=== PATIENT | female | born 1980 | race Caucasian/White ===

== ENCOUNTER 2017-04-05 19:54 | Inpatient (IN) | payer MEDICAID ==
[~2017-04-05] VITALS: Ht 165.1 cm; Wt 71.4 kg
[2017-04-05 22:38] LABS: Basophils # (auto) 0.1 uL; Basophils % (auto) 0.5 % (0.0-2.0); Eosinophils # (auto) 0 uL; Eosinophils % (auto) 0.1 % (0.0-7.0); Hemoglobin 10.1 g/dL (12.2-16.2); Mean Platelet Volume 6.3 fL (6.9-10.8); White Blood Cell 25.5 10^3/uL (4.4-10.8)
[2017-04-05 22:39] LABS: Hematocrit 31.5 % (36.0-46.0); Lymphocytes # (auto) 2.9 uL; Lymphocytes % (auto) 11.2 % (10.0-50.0); Mean Corpuscular Hgb Conc. 32.1 g/dL (32.0-36.0); Mean Corpuscular Volume 80.9 fL (80.0-100.0); Monocytes # (auto) 1.4 uL; Monocytes % (auto) 5.7 % (0.0-12.0); Neutrophils # (auto) 21.1 uL; Neutrophils % (auto) 82.5 % (37.0-80.0); Red Cell Distribution Width 16.9 % (11.8-14.3)
[2017-04-05 22:46] LABS: Platelet Count (auto) 800 10^3/uL (140-450)
[2017-04-05 22:55] LABS: Albumin 2.2 g/dL (3.4-5.0); BUN/Creatinine Ratio 7.8; Bilirubin, Total 0.5 mg/dL (0.2-1.0); Calcium 8.8 mg/dL (8.5-10.1); Potassium 3.9 mmol/L (3.5-5.1); Total Protein 8.6 g/dL (6.4-8.2)
[2017-04-05 23:19] LABS: Anisocytosis Moderate; Platelet Estimate Increased
[2017-04-05] MEDS ORDERED: VANCOMYCIN 1GM/250ML 250 ML IV ONE (23:30)
[2017-04-05] MEDS ORDERED: ONDANSETRON HCL 4 MG/2 ML VIAL IV ONE (23:30)
[2017-04-05] MEDS ORDERED: cefTRIAXone 1GM/50ML D5W 50 ML IV ONE (23:30)
[2017-04-05] MEDS ORDERED: HYDROmorphone HCL 2 MG/ML VL IV ONE (23:30)
[2017-04-06] MEDS ORDERED: SODIUM CHLORIDE 0.9% 2,340 ML IV ONE
[2017-04-06] MEDS ORDERED: HYDROcodone-ACET 5/325MG TAB PO PRN (02:00)
[2017-04-06] MEDS ORDERED: ACETAMINOPHEN 500 MG TAB PO PRN ×2 (02:00→04:30)
[2017-04-06] MEDS ORDERED: ONDANSETRON HCL 4 MG/2 ML VIAL IV PRN (02:00)
[2017-04-06] MEDS ORDERED: VANCOMYCIN PER PHARMACY 0 MG IV SCH (04:30)
[2017-04-06] MEDS: SODIUM CHLORIDE 0.9% 1,000 ML IV SCH ×3 (04:53→18:19)
[2017-04-06] MEDS: HYDROcodone-ACET 5/325MG TAB PO PRN (05:42)
[2017-04-06 06:19] LABS: Basophils # (auto) 0 uL; Basophils % (auto) 0.2 % (0.0-2.0); Hemoglobin 8.9 g/dL (12.2-16.2); Red Cell Distribution Width 16.7 % (11.8-14.3)
[2017-04-06 06:23] LABS: Eosinophils # (auto) 0 uL; Eosinophils % (auto) 0.1 % (0.0-7.0); Hematocrit 27.4 % (36.0-46.0); Lymphocytes # (auto) 2.8 uL; Lymphocytes % (auto) 13.4 % (10.0-50.0); Mean Corpuscular Hemoglobin 26.3 pg (28.0-32.0); Mean Corpuscular Hgb Conc. 32.3 g/dL (32.0-36.0); Mean Corpuscular Volume 81.2 fL (80.0-100.0); Mean Platelet Volume 6.4 fL (6.9-10.8); Monocytes # (auto) 1.5 uL; Neutrophils # (auto) 16.5 uL; Neutrophils % (auto) 79.3 % (37.0-80.0); Platelet Count (auto) 645 10^3/uL (140-450); White Blood Cell 20.8 10^3/uL (4.4-10.8)
[2017-04-06] MEDS ORDERED: HYDROmorphone HCL 2 MG/ML VL IV ONE (06:30)
[2017-04-06 06:42] LABS: Calcium 7.6 mg/dL (8.5-10.1); Potassium 3.2 mmol/L (3.5-5.1)
[2017-04-06] MEDS ORDERED: VANCOMYCIN 1GM/250ML 250 ML IV SCH ×2 (09:00→15:00)
[2017-04-06] MEDS: LORazepam 2MG/ML-1ML VIAL IV PRN ×2 (09:35→18:39)
[2017-04-06] MEDS ORDERED: PIPERACILLIN-TAZOB 3.375GM 100 ML IV ONE (13:45)
[2017-04-06] MEDS ORDERED: POTASSIUM CHL 10 Meq TABLET PO ONE (14:00)
[2017-04-06] MEDS: HYDROmorphone HCL 2 MG/ML VL IV PRN ×3 (14:56→22:46)
[2017-04-06] MEDS: VANCOMYCIN 1,000 MG in D5W 5% 250 ML IV SCH (17:06)
[2017-04-06 18:00] VITALS: BP 93/52
[2017-04-06] MEDS: BOOST PLUS 8 ounce PO SCH ×2 (18:19→21:24)
[2017-04-06] MEDS: PIPERACILLIN-TAZOB 3.375GM 100 ML IV SCH ×2 (18:19→23:36)
[2017-04-06 19:26] LABS: Lactic Acid w/Reflex 2.7 mmol/L (0.4-2.0)
[2017-04-06 20:03] LABS: REFLEX LACTIC ACID YES OR NO YES
[2017-04-06 22:15] VITALS: BP 116/67
[2017-04-07] MEDS: SODIUM CHLORIDE 0.9% 1,000 ML IV SCH ×2 (02:06→12:41)
[2017-04-07] MEDS: VANCOMYCIN 1,000 MG in D5W 5% 250 ML IV SCH ×3 (02:21→16:50)
[2017-04-07] MEDS: HYDROmorphone HCL 2 MG/ML VL IV PRN ×4 (02:47→20:36)
[2017-04-07] MEDS: LORazepam 2MG/ML-1ML VIAL IV PRN (05:08)
[2017-04-07 05:24] VITALS: BP 97/69
[2017-04-07] MEDS: PIPERACILLIN-TAZOB 3.375GM 100 ML IV SCH ×2 (06:03→12:14)
[2017-04-07] MEDS: BOOST PLUS 8 ounce PO SCH ×4 (06:03→21:36)
[2017-04-07 06:07] LABS: Eosinophils # (auto) 0.1 uL; Eosinophils % (auto) 0.3 % (0.0-7.0); Hemoglobin 8.5 g/dL (12.2-16.2); Lymphocytes # (auto) 2.3 uL; White Blood Cell 17.6 10^3/uL (4.4-10.8)
[2017-04-07 06:09] LABS: Basophils # (auto) 0 uL; Basophils % (auto) 0.2 % (0.0-2.0); Hematocrit 26.9 % (36.0-46.0); Lymphocytes % (auto) 13.4 % (10.0-50.0); Mean Corpuscular Hemoglobin 25.7 pg (28.0-32.0); Mean Corpuscular Hgb Conc. 31.7 g/dL (32.0-36.0); Mean Corpuscular Volume 81.1 fL (80.0-100.0); Mean Platelet Volume 6.5 fL (6.9-10.8); Monocytes % (auto) 5.7 % (0.0-12.0); Neutrophils # (auto) 14.1 uL; Neutrophils % (auto) 80.4 % (37.0-80.0); Nucleated Red Blood Cells % 0.1 %; Platelet Count (auto) 582 10^3/uL (140-450)
[2017-04-07 06:18] LABS: Calcium 8.1 mg/dL (8.5-10.1); Potassium 3.4 mmol/L (3.5-5.1)
[2017-04-07 06:20] LABS: BUN/Creatinine Ratio 11.4
[2017-04-07 08:50] VITALS: BP_SYST 154; BP_SYST 95; BP_DIAS 48; BP_DIAS 61
[2017-04-07] MEDS: HYDROcodone-ACET 5/325MG TAB PO PRN ×2 (09:44→14:57)
[2017-04-07] MEDS ORDERED: LEVOFLOXACIN 750MG 150 ML IV SCH (13:12)
[2017-04-07] MEDS ORDERED: METHADONE HCL 10 MG TAB PO ONE (13:15)
[2017-04-07 13:43] VITALS: BP 91/55
[2017-04-07] MEDS ORDERED: POTASSIUM CHL 20 Meq TABLET PO ONE (13:45)
[2017-04-07] MEDS: METHADONE HCL 10 MG TAB PO SCH (14:57)
[2017-04-07 16:55] VITALS: BP 102/58
[2017-04-07 21:53] VITALS: BP 116/67
[2017-04-08] MEDS: HYDROmorphone HCL 2 MG/ML VL IV PRN ×5 (00:39→20:58)
[2017-04-08 05:18] VITALS: BP 102/71
[2017-04-08] MEDS: BOOST PLUS 8 ounce PO SCH ×4 (06:23→20:59)
[2017-04-08 06:51] LABS: Basophils % (auto) 0.2 % (0.0-2.0); Eosinophils % (auto) 0.2 % (0.0-7.0); Hemoglobin 8.5 g/dL (12.2-16.2); Mean Corpuscular Hemoglobin 25.6 pg (28.0-32.0); Mean Platelet Volume 6.3 fL (6.9-10.8); Monocytes # (auto) 1.3 uL; Red Cell Distribution Width 17.1 % (11.8-14.3)
[2017-04-08 06:57] LABS: Basophils # (auto) 0 uL; Eosinophils # (auto) 0 uL; Hematocrit 26.8 % (36.0-46.0); Lymphocytes % (auto) 9.4 % (10.0-50.0); Mean Corpuscular Hgb Conc. 31.5 g/dL (32.0-36.0); Mean Corpuscular Volume 81.3 fL (80.0-100.0); Monocytes % (auto) 6.3 % (0.0-12.0); Neutrophils # (auto) 17.5 uL; Neutrophils % (auto) 83.9 % (37.0-80.0); Nucleated Red Blood Cells % 0.1 %; Platelet Count (auto) 675 10^3/uL (140-450); White Blood Cell 20.9 10^3/uL (4.4-10.8)
[2017-04-08 07:10] LABS: Albumin 1.5 g/dL (3.4-5.0); Calcium 8.1 mg/dL (8.5-10.1)
[2017-04-08 07:13] LABS: Bilirubin, Total 0.2 mg/dL (0.2-1.0); Total Protein 6.4 g/dL (6.4-8.2)
[2017-04-08 09:00] VITALS: BP 105/56
[2017-04-08] MEDS ORDERED: DOXYCYCLINE HYC 100MG/250ML 250 ML IV SCH (09:00)
[2017-04-08] MEDS: LINEZOLID 600MG/300ML 300 ML IV SCH ×2 (09:39→20:59)
[2017-04-08] MEDS: ONDANSETRON HCL 4 MG/2 ML VIAL IV PRN (09:39)
[2017-04-08] MEDS: SODIUM CHLORIDE 0.9% 1,000 ML IV SCH ×2 (09:40→17:09)
[2017-04-08] MEDS ORDERED: VANCOMYCIN 1,000 MG in D5W 5% 250 ML IV SCH (10:00)
[2017-04-08] MEDS ORDERED: METHADONE HCL 10 MG TAB PO ONE (11:00)
[2017-04-08 11:15] LABS: INR 1.04 (0.9-1.15); Partial Thromboplastin Time 32.5 sec (22.64-33.71); Prothrombin Time 11.3 sec (9.37-12.3)
[2017-04-08 13:00] VITALS: BP 96/56
[2017-04-08 16:54] VITALS: BP 97/62
[2017-04-08] MEDS: MULTIPLE VITAMINS W/ MINERALS TAB PO SCH (20:57)
[2017-04-08] MEDS: ASCORBIC ACID 500 MG TAB PO SCH (20:58)
[2017-04-08] MEDS: SENNA 8.6 MG TAB PO SCH (20:58)
[2017-04-08 22:00] VITALS: BP 94/53
[2017-04-08] MEDS: PRO-STAT 64 30ML PO SCH (22:00)
[2017-04-09] MEDS: HYDROmorphone HCL 2 MG/ML VL IV PRN ×5 (02:59→21:39)
[2017-04-09 05:00] VITALS: BP 70/34
[2017-04-09 06:04] LABS: Basophils # (auto) 0.1 uL; Eosinophils # (auto) 0.2 uL; Hemoglobin 8.6 g/dL (12.2-16.2); Lymphocytes # (auto) 1.8 uL; Neutrophils % (auto) 85.6 % (37.0-80.0); White Blood Cell 21.2 10^3/uL (4.4-10.8)
[2017-04-09 06:06] LABS: Basophils % (auto) 0.4 % (0.0-2.0); Hematocrit 26.8 % (36.0-46.0); Lymphocytes % (auto) 8.4 % (10.0-50.0); Mean Corpuscular Volume 81.1 fL (80.0-100.0); Mean Platelet Volume 6.2 fL (6.9-10.8); Monocytes % (auto) 4.6 % (0.0-12.0); Neutrophils # (auto) 18.1 uL; Platelet Count (auto) 633 10^3/uL (140-450)
[2017-04-09] MEDS: SODIUM CHLORIDE 0.9% 1,000 ML IV SCH ×2 (06:11→12:56)
[2017-04-09] MEDS: BOOST PLUS 8 ounce PO SCH ×4 (06:13→21:38)
[2017-04-09 06:25] LABS: Albumin 1.5 g/dL (3.4-5.0); Bilirubin, Total 0.2 mg/dL (0.2-1.0); Calcium 7.8 mg/dL (8.5-10.1); Potassium 3.9 mmol/L (3.5-5.1); Total Protein 6.3 g/dL (6.4-8.2)
[2017-04-09 08:00] VITALS: BP 103/54
[2017-04-09 09:00] VITALS: BP 103/44
[2017-04-09] MEDS: LINEZOLID 600MG/300ML 300 ML IV SCH ×2 (09:58→21:38)
[2017-04-09] MEDS: METHADONE HCL 10 MG TAB PO SCH (09:59)
[2017-04-09] MEDS: MULTIPLE VITAMINS W/ MINERALS TAB PO SCH ×2 (09:59→21:38)
[2017-04-09] MEDS: ASCORBIC ACID 500 MG TAB PO SCH ×2 (09:59→21:38)
[2017-04-09] MEDS: PRO-STAT 64 30ML PO SCH ×2 (10:00→21:38)
[2017-04-09 13:00] VITALS: BP 89/52
[2017-04-09 17:00] VITALS: BP 93/47
[2017-04-09] MEDS: SENNA 8.6 MG TAB PO SCH ×2 (21:39→21:51)
[2017-04-09 22:19] VITALS: BP 104/59
[2017-04-10] MEDS: SODIUM CHLORIDE 0.9% 1,000 ML IV SCH ×3 (00:50→22:36)
[2017-04-10] MEDS: HYDROmorphone HCL 2 MG/ML VL IV PRN ×5 (01:56→20:42)
[2017-04-10 04:45] VITALS: BP 99/48
[2017-04-10 05:22] LABS: Hemoglobin 8.2 g/dL (12.2-16.2)
[2017-04-10 05:27] LABS: Hematocrit 25.4 % (36.0-46.0); Mean Corpuscular Hemoglobin 26.3 pg (28.0-32.0); Mean Corpuscular Hgb Conc. 32.5 g/dL (32.0-36.0); Mean Corpuscular Volume 80.9 fL (80.0-100.0); Mean Platelet Volume 6.5 fL (6.9-10.8); Platelet Count (auto) 632 10^3/uL (140-450); White Blood Cell 19.7 10^3/uL (4.4-10.8)
[2017-04-10] MEDS: BOOST PLUS 8 ounce PO SCH ×4 (05:30→22:36)
[2017-04-10 05:36] LABS: Promyelocytes % 0; Reactive Lymphocytes 0
[2017-04-10 05:41] LABS: Albumin 1.5 g/dL (3.4-5.0); BUN/Creatinine Ratio 7.3; Calcium 7.7 mg/dL (8.5-10.1)
[2017-04-10 05:43] LABS: Bilirubin, Total 0.1 mg/dL (0.2-1.0)
[2017-04-10 07:03] LABS: Anisocytosis Slight; Metamyelocytes % 1; Myelocytes % 1; Platelet Estimate Increased; Polychromasia Slight
[2017-04-10 08:00] VITALS: BP_SYST 105; BP_SYST 90; BP_DIAS 44; BP_DIAS 66
[2017-04-10 09:00] VITALS: BP 90/44
[2017-04-10] MEDS: LINEZOLID 600MG/300ML 300 ML IV SCH ×2 (09:48→22:36)
[2017-04-10] MEDS: MULTIPLE VITAMINS W/ MINERALS TAB PO SCH ×2 (09:49→22:37)
[2017-04-10] MEDS: ASCORBIC ACID 500 MG TAB PO SCH ×2 (09:49→22:38)
[2017-04-10] MEDS: PRO-STAT 64 30ML PO SCH ×2 (09:49→22:37)
[2017-04-10] MEDS: METHADONE HCL 10 MG TAB PO SCH (11:36)
[2017-04-10 13:02] VITALS: BP 94/54
[2017-04-10 15:57] LABS: Urine Bilirubin Negative (Negative); Urine Blood Negative /uL (Negative); Urine Color Colorless (Yellow); Urine Glucose Normal (Normal); Urine Hyaline Cast FEW /lpf (0 - 2); Urine Ketone Negative (Negative); Urine Nitrite Negative (Negative); Urine RBC <1 /hpf (0 - 4); Urine Squamous Epithelial Cell FEW /hpf (<5); Urine Urobilinogen Normal (Negative); Urine pH 5.5 (5.0-8.0)
[2017-04-10 16:48] VITALS: BP 99/54
[2017-04-10] MEDS: SENNA 8.6 MG TAB PO SCH (22:00)
[2017-04-10 22:01] VITALS: BP 103/56
[2017-04-11] MEDS: ONDANSETRON HCL 4 MG/2 ML VIAL IV PRN ×2 (00:40→22:23)
[2017-04-11] MEDS: HYDROmorphone HCL 2 MG/ML VL IV PRN ×6 (00:41→22:38)
[2017-04-11 05:00] VITALS: BP 101/55
[2017-04-11 06:09] LABS: Mean Platelet Volume 6.5 fL (6.9-10.8)
[2017-04-11 06:12] LABS: Hematocrit 25.1 % (36.0-46.0); Hemoglobin 7.9 g/dL (12.2-16.2); Mean Corpuscular Hemoglobin 25.5 pg (28.0-32.0); Mean Corpuscular Hgb Conc. 31.5 g/dL (32.0-36.0); Mean Corpuscular Volume 80.9 fL (80.0-100.0); Platelet Count (auto) 554 10^3/uL (140-450); Red Cell Distribution Width 16.9 % (11.8-14.3); White Blood Cell 21.6 10^3/uL (4.4-10.8)
[2017-04-11 06:15] LABS: Metamyelocytes % 0; Promyelocytes % 0; Reactive Lymphocytes 0
[2017-04-11 06:23] LABS: Albumin 1.6 g/dL (3.4-5.0); BUN/Creatinine Ratio 6.8; Bilirubin, Total 0.1 mg/dL (0.2-1.0); Magnesium 1.8 mg/dL (1.6-2.6); Phosphorus 4.7 mg/dL (2.5-4.90); Potassium 4.2 mmol/L (3.5-5.1); Total Protein 6.4 g/dL (6.4-8.2)
[2017-04-11 06:43] LABS: Hypersegmented Neutrophils Present; Myelocytes % 2; Platelet Estimate Increased
[2017-04-11 06:44] LABS: Anisocytosis Slight; Polychromasia Slight
[2017-04-11] MEDS: BOOST PLUS 8 ounce PO SCH ×4 (07:35→22:22)
[2017-04-11] MEDS: SODIUM CHLORIDE 0.9% 1,000 ML IV SCH ×3 (07:36→22:23)
[2017-04-11 08:00] VITALS: BP 97/51
[2017-04-11] MEDS: ASCORBIC ACID 500 MG TAB PO SCH ×2 (09:30→22:23)
[2017-04-11] MEDS: LINEZOLID 600MG/300ML 300 ML IV SCH ×2 (09:30→22:22)
[2017-04-11] MEDS: PRO-STAT 64 30ML PO SCH ×2 (09:31→22:22)
[2017-04-11] MEDS: MULTIPLE VITAMINS W/ MINERALS TAB PO SCH ×2 (09:31→22:22)
[2017-04-11 09:59] VITALS: BP 97/51
[2017-04-11] MEDS: METHADONE HCL 10 MG TAB PO SCH (11:29)
[2017-04-11 13:00] VITALS: BP 108/58
[2017-04-11 18:32] VITALS: BP 111/56
[2017-04-11 21:29] VITALS: BP 98/62
[2017-04-11] MEDS: SENNA 8.6 MG TAB PO SCH (22:00)
[2017-04-12] MEDS: HYDROmorphone HCL 2 MG/ML VL IV PRN ×5 (03:19→20:29)
[2017-04-12 05:52] VITALS: BP 103/57
[2017-04-12] MEDS: BOOST PLUS 8 ounce PO SCH ×4 (06:00→22:00)
[2017-04-12 06:53] LABS: Basophils # (auto) 0 uL; Eosinophils # (auto) 0.6 uL; Eosinophils % (auto) 3.1 % (0.0-7.0); Hemoglobin 8.3 g/dL (12.2-16.2); Monocytes # (auto) 0.8 uL
[2017-04-12 06:57] LABS: Basophils % (auto) 0.2 % (0.0-2.0); Hematocrit 26.1 % (36.0-46.0); Lymphocytes # (auto) 2.3 uL; Lymphocytes % (auto) 11.9 % (10.0-50.0); Mean Corpuscular Hemoglobin 25.7 pg (28.0-32.0); Mean Corpuscular Hgb Conc. 31.8 g/dL (32.0-36.0); Mean Corpuscular Volume 80.8 fL (80.0-100.0); Mean Platelet Volume 6.4 fL (6.9-10.8); Monocytes % (auto) 4.1 % (0.0-12.0); Neutrophils # (auto) 15.5 uL; Neutrophils % (auto) 80.7 % (37.0-80.0); Platelet Count (auto) 639 10^3/uL (140-450); White Blood Cell 19.2 10^3/uL (4.4-10.8)
[2017-04-12 07:09] LABS: Albumin 1.6 g/dL (3.4-5.0); BUN/Creatinine Ratio 6.9; Calcium 8.3 mg/dL (8.5-10.1); Potassium 4.5 mmol/L (3.5-5.1)
[2017-04-12 07:12] LABS: Bilirubin, Total 0.2 mg/dL (0.2-1.0); Total Protein 6.3 g/dL (6.4-8.2)
[2017-04-12 08:00] VITALS: BP 90/50
[2017-04-12 08:48] LABS: INR 0.99 (0.9-1.15); Partial Thromboplastin Time 35.2 sec (22.64-33.71); Prothrombin Time 10.8 sec (9.37-12.3)
[2017-04-12] MEDS: ASCORBIC ACID 500 MG TAB PO SCH ×3 (09:10→22:19)
[2017-04-12] MEDS: LINEZOLID 600MG/300ML 300 ML IV SCH ×2 (09:10→22:19)
[2017-04-12] MEDS: MULTIPLE VITAMINS W/ MINERALS TAB PO SCH ×3 (09:10→22:19)
[2017-04-12] MEDS: PRO-STAT 64 30ML PO SCH ×2 (09:11→22:00)
[2017-04-12 09:30] VITALS: BP 88/50
[2017-04-12] MEDS: METHADONE HCL 10 MG TAB PO SCH ×2 (11:30→14:18)
[2017-04-12] MEDS ORDERED: NALOXONE HCL 0.4 MG/ML VIAL ONE (11:44)
[2017-04-12] MEDS ORDERED: FLUMAZENIL 0.1 MG/ML INJ 10ML MDV IV ONE (11:44)
[2017-04-12] MEDS ORDERED: MIDAZOLAM HCL 1MG/1ML-2 ML VIAL IV ONE (12:15)
[2017-04-12] MEDS ORDERED: fentaNYL CITRATE 100 MCG/2 ML VL IV ONE (12:15)
[2017-04-12] MEDS: SODIUM CHLORIDE 0.9% 1,000 ML IV SCH ×2 (12:39→22:19)
[2017-04-12] MEDS ORDERED: MIDAZOLAM HCL 1MG/1ML-2 ML VIAL ONE (12:44)
[2017-04-12 14:34] VITALS: BP 95/53
[2017-04-12 16:25] VITALS: BP 102/68
[2017-04-12 22:00] VITALS: BP 102/50
[2017-04-12] MEDS: SENNA 8.6 MG TAB PO SCH (22:00)
[2017-04-13] MEDS: HYDROmorphone HCL 2 MG/ML VL IV PRN ×5 (02:34→20:42)
[2017-04-13 05:00] VITALS: BP 106/64
[2017-04-13 05:46] LABS: Hematocrit 24.7 % (36.0-46.0); Hemoglobin 7.8 g/dL (12.2-16.2); Mean Corpuscular Hgb Conc. 31.4 g/dL (32.0-36.0); Mean Platelet Volume 6.2 fL (6.9-10.8); White Blood Cell 18.3 10^3/uL (4.4-10.8)
[2017-04-13 05:49] LABS: Mean Corpuscular Hemoglobin 25.5 pg (28.0-32.0); Mean Corpuscular Volume 81.2 fL (80.0-100.0); Platelet Count (auto) 567 10^3/uL (140-450); Red Cell Distribution Width 17.1 % (11.8-14.3)
[2017-04-13 05:56] LABS: Metamyelocytes % 0; Myelocytes % 0; Promyelocytes % 0; Reactive Lymphocytes 0
[2017-04-13 06:04] LABS: Potassium 4.2 mmol/L (3.5-5.1)
[2017-04-13 06:14] LABS: Albumin 1.6 g/dL (3.4-5.0); BUN/Creatinine Ratio 6.9
[2017-04-13 06:16] LABS: Bilirubin, Total 0.2 mg/dL (0.2-1.0); Total Protein 6.2 g/dL (6.4-8.2)
[2017-04-13] MEDS: BOOST PLUS 8 ounce PO SCH ×4 (06:31→22:35)
[2017-04-13 06:44] LABS: Hypersegmented Neutrophils Present; Platelet Estimate Increased
[2017-04-13 06:45] LABS: RBC Morphology Normal
[2017-04-13 08:00] VITALS: BP 108/64
[2017-04-13] MEDS: SODIUM CHLORIDE 0.9% 1,000 ML IV SCH ×2 (08:01→18:26)
[2017-04-13 09:00] VITALS: BP 108/64
[2017-04-13] MEDS: PRO-STAT 64 30ML PO SCH ×2 (10:00→22:35)
[2017-04-13] MEDS: LINEZOLID 600MG/300ML 300 ML IV SCH ×2 (10:31→22:34)
[2017-04-13] MEDS: MULTIPLE VITAMINS W/ MINERALS TAB PO SCH ×2 (10:31→22:34)
[2017-04-13] MEDS: ASCORBIC ACID 500 MG TAB PO SCH ×2 (10:31→22:35)
[2017-04-13] MEDS: METHADONE HCL 10 MG TAB PO SCH (11:00)
[2017-04-13 13:00] VITALS: BP 92/54
[2017-04-13] MEDS ORDERED: cefTRIAXone 1GM/50ML D5W 50 ML IV ONE (15:45)
[2017-04-13] MEDS: cefTRIAXone 1GM/50ML D5W 50 ML IV SCH (16:16)
[2017-04-13 17:00] VITALS: BP 102/64
[2017-04-13 22:00] VITALS: BP 104/55
[2017-04-13] MEDS: SENNA 8.6 MG TAB PO SCH ×2 (22:35→22:42)
[2017-04-14] MEDS: HYDROmorphone HCL 2 MG/ML VL IV PRN ×6 (00:47→22:59)
[2017-04-14] MEDS: SODIUM CHLORIDE 0.9% 1,000 ML IV SCH ×3 (00:53→15:09)
[2017-04-14 05:00] VITALS: BP 104/51
[2017-04-14] MEDS: BOOST PLUS 8 ounce PO SCH ×5 (05:16→22:02)
[2017-04-14 06:06] LABS: Vitamin D 25-Hydroxy 18 ng/mL (.); Vitamin D-2 25-Hydroxy <1.0 ng/mL (.)
[2017-04-14 07:51] LABS: Basophils # (auto) 0 uL; Eosinophils # (auto) 0.5 uL; Hemoglobin 8.3 g/dL (12.2-16.2)
[2017-04-14 07:53] LABS: Basophils % (auto) 0.1 % (0.0-2.0); Eosinophils % (auto) 2.9 % (0.0-7.0); Lymphocytes # (auto) 2.7 uL; Mean Corpuscular Hemoglobin 25.5 pg (28.0-32.0); Mean Corpuscular Hgb Conc. 31.9 g/dL (32.0-36.0); Mean Corpuscular Volume 80.1 fL (80.0-100.0); Mean Platelet Volume 5.8 fL (6.9-10.8); Monocytes # (auto) 0.6 uL; Monocytes % (auto) 3.9 % (0.0-12.0); Neutrophils % (auto) 76.1 % (37.0-80.0); Platelet Count (auto) 617 10^3/uL (140-450); Red Cell Distribution Width 16.9 % (11.8-14.3); White Blood Cell 15.8 10^3/uL (4.4-10.8)
[2017-04-14 08:00] VITALS: BP 113/63
[2017-04-14 08:09] LABS: Albumin 1.7 g/dL (3.4-5.0); Bilirubin, Total 0.1 mg/dL (0.2-1.0); Calcium 8.3 mg/dL (8.5-10.1); Potassium 4.1 mmol/L (3.5-5.1); Total Protein 6.7 g/dL (6.4-8.2)
[2017-04-14 09:00] VITALS: BP 113/63
[2017-04-14] MEDS ORDERED: LORazepam 2MG/ML-1ML VIAL IV PRN (09:00)
[2017-04-14] MEDS ORDERED: HYDROcodone-ACET 5/325MG TAB PO PRN (09:00)
[2017-04-14] MEDS: MULTIPLE VITAMINS W/ MINERALS TAB PO SCH ×2 (10:07→22:01)
[2017-04-14] MEDS: ASCORBIC ACID 500 MG TAB PO SCH ×2 (10:07→22:01)
[2017-04-14] MEDS: cefTRIAXone 1GM/50ML D5W 50 ML IV SCH (10:07)
[2017-04-14] MEDS: METHADONE HCL 10 MG TAB PO SCH (10:07)
[2017-04-14] MEDS: PRO-STAT 64 30ML PO SCH ×2 (10:08→22:01)
[2017-04-14] MEDS: LINEZOLID 600MG/300ML 300 ML IV SCH ×2 (10:08→22:01)
[2017-04-14 13:00] VITALS: BP 99/70
[2017-04-14 17:00] VITALS: BP 109/72
[2017-04-14 22:00] VITALS: BP 115/68
[2017-04-14] MEDS: SENNA 8.6 MG TAB PO SCH (22:00)
[2017-04-14] MEDS: ONDANSETRON HCL 4 MG/2 ML VIAL IV PRN (23:43)
[2017-04-15] MEDS: SODIUM CHLORIDE 0.9% 1,000 ML IV SCH ×3 (01:26→22:20)
[2017-04-15] MEDS: HYDROmorphone HCL 2 MG/ML VL IV PRN ×4 (03:45→21:12)
[2017-04-15 05:00] VITALS: BP 104/69
[2017-04-15] MEDS: BOOST PLUS 8 ounce PO SCH ×4 (05:16→21:23)
[2017-04-15 06:57] LABS: Basophils # (auto) 0 uL; Basophils % (auto) 0.2 % (0.0-2.0); Eosinophils # (auto) 0.4 uL; Monocytes # (auto) 0.5 uL
[2017-04-15 07:01] LABS: Eosinophils % (auto) 3.2 % (0.0-7.0); Hematocrit 23.3 % (36.0-46.0); Hemoglobin 7.6 g/dL (12.2-16.2); Lymphocytes # (auto) 2.6 uL; Lymphocytes % (auto) 21.5 % (10.0-50.0); Mean Corpuscular Hemoglobin 26.2 pg (28.0-32.0); Mean Corpuscular Hgb Conc. 32.7 g/dL (32.0-36.0); Mean Corpuscular Volume 80.3 fL (80.0-100.0); Mean Platelet Volume 5.8 fL (6.9-10.8); Monocytes % (auto) 4.1 % (0.0-12.0); Neutrophils # (auto) 8.6 uL; Nucleated Red Blood Cells % 0.1 %; Platelet Count (auto) 501 10^3/uL (140-450); White Blood Cell 12.1 10^3/uL (4.4-10.8)
[2017-04-15 07:09] LABS: Albumin 1.7 g/dL (3.4-5.0); BUN/Creatinine Ratio 6.3; Bilirubin, Total 0.2 mg/dL (0.2-1.0); Calcium 8.1 mg/dL (8.5-10.1); Potassium 3.7 mmol/L (3.5-5.1); Total Protein 6.5 g/dL (6.4-8.2)
[2017-04-15 08:00] VITALS: BP 114/62
[2017-04-15 09:00] VITALS: BP 114/62
[2017-04-15] MEDS: cefTRIAXone 1GM/50ML D5W 50 ML IV SCH (09:07)
[2017-04-15] MEDS: LINEZOLID 600MG/300ML 300 ML IV SCH ×2 (09:07→21:17)
[2017-04-15] MEDS: ASCORBIC ACID 500 MG TAB PO SCH ×2 (09:07→21:15)
[2017-04-15] MEDS: PRO-STAT 64 30ML PO SCH ×2 (09:13→21:23)
[2017-04-15] MEDS: MULTIPLE VITAMINS W/ MINERALS TAB PO SCH ×2 (09:13→21:15)
[2017-04-15] MEDS: CHOLECALCIFEROL (VITD3) 1,000 UNIT TAB PO SCH (10:43)
[2017-04-15] MEDS ORDERED: METHADONE HCL 10 MG TAB PO ONE (11:45)
[2017-04-15] MEDS: METHADONE HCL 10 MG TAB PO SCH (11:46)
[2017-04-15 13:00] VITALS: BP 90/60
[2017-04-15] MEDS: ONDANSETRON HCL 4 MG/2 ML VIAL IV PRN ×2 (16:11→21:11)
[2017-04-15 17:00] VITALS: BP 113/73
[2017-04-15] MEDS: SENNA 8.6 MG TAB PO SCH (21:15)
[2017-04-15 21:47] VITALS: BP 105/66
[2017-04-16] VITALS (7 sets, daily range): BP systolic 88–117; BP diastolic 52–68
[2017-04-16] MEDS: ONDANSETRON HCL 4 MG/2 ML VIAL IV PRN ×3 (01:11→18:54)
[2017-04-16] MEDS: HYDROmorphone HCL 2 MG/ML VL IV PRN ×5 (01:11→18:55)
[2017-04-16] MEDS: BOOST PLUS 8 ounce PO SCH ×4 (05:19→21:59)
[2017-04-16 05:27] LABS: BUN/Creatinine Ratio 7.1; Calcium 8.5 mg/dL (8.5-10.1); Potassium 3.9 mmol/L (3.5-5.1)
[2017-04-16] MEDS: cefTRIAXone 1GM/50ML D5W 50 ML IV SCH (09:25)
[2017-04-16] MEDS: ASCORBIC ACID 500 MG TAB PO SCH ×2 (10:02→21:59)
[2017-04-16] MEDS: MULTIPLE VITAMINS W/ MINERALS TAB PO SCH ×2 (10:02→22:00)
[2017-04-16] MEDS: PRO-STAT 64 30ML PO SCH ×2 (10:02→21:59)
[2017-04-16] MEDS: CHOLECALCIFEROL (VITD3) 1,000 UNIT TAB PO SCH (10:02)
[2017-04-16] MEDS: LINEZOLID 600MG/300ML 300 ML IV SCH ×2 (10:02→21:59)
[2017-04-16] MEDS: METHADONE HCL 10 MG TAB PO SCH (11:31)
[2017-04-16] MEDS: SODIUM CHLORIDE 0.9% 1,000 ML IV SCH (11:37)
[2017-04-16] MEDS: SENNA 8.6 MG TAB PO SCH (22:00)
[2017-04-17] MEDS: HYDROmorphone HCL 2 MG/ML VL IV PRN ×5 (00:03→21:34)
[2017-04-17 05:17] VITALS: BP 120/68
[2017-04-17] MEDS: BOOST PLUS 8 ounce PO SCH ×4 (07:00→21:34)
[2017-04-17 08:00] VITALS: BP 94/57
[2017-04-17 08:26] VITALS: BP 94/57
[2017-04-17] MEDS: cefTRIAXone 1GM/50ML D5W 50 ML IV SCH (09:31)
[2017-04-17] MEDS: CHOLECALCIFEROL (VITD3) 1,000 UNIT TAB PO SCH (09:32)
[2017-04-17] MEDS: MULTIPLE VITAMINS W/ MINERALS TAB PO SCH ×2 (09:32→21:34)
[2017-04-17] MEDS: PRO-STAT 64 30ML PO SCH ×2 (09:32→21:35)
[2017-04-17] MEDS: ASCORBIC ACID 500 MG TAB PO SCH ×2 (09:32→21:34)
[2017-04-17] MEDS: SODIUM CHLORIDE 0.9% 1,000 ML IV SCH ×2 (09:33→14:45)
[2017-04-17] MEDS: LINEZOLID 600MG/300ML 300 ML IV SCH ×2 (11:17→21:34)
[2017-04-17] MEDS: METHADONE HCL 10 MG TAB PO SCH (11:17)
[2017-04-17 12:37] VITALS: BP 111/59
[2017-04-17 13:44] LABS: Basophils # (auto) 0.1 uL; Lymphocytes # (auto) 2.7 uL; Mean Platelet Volume 5.8 fL (6.9-10.8); Platelet Count (auto) 518 10^3/uL (140-450)
[2017-04-17 13:46] LABS: Basophils % (auto) 0.6 % (0.0-2.0); Eosinophils # (auto) 0.2 uL; Eosinophils % (auto) 2.3 % (0.0-7.0); Hematocrit 25.6 % (36.0-46.0); Hemoglobin 8.5 g/dL (12.2-16.2); Lymphocytes % (auto) 25.2 % (10.0-50.0); Mean Corpuscular Hemoglobin 26.5 pg (28.0-32.0); Mean Corpuscular Hgb Conc. 33.2 g/dL (32.0-36.0); Mean Corpuscular Volume 79.8 fL (80.0-100.0); Monocytes # (auto) 0.4 uL; Monocytes % (auto) 4.2 % (0.0-12.0); Neutrophils # (auto) 7.2 uL; Neutrophils % (auto) 67.7 % (37.0-80.0); Nucleated Red Blood Cells % 0.1 %; Red Cell Distribution Width 17.3 % (11.8-14.3); White Blood Cell 10.7 10^3/uL (4.4-10.8)
[2017-04-17 14:02] LABS: BUN/Creatinine Ratio 9.4; Calcium 8.7 mg/dL (8.5-10.1); Magnesium 1.8 mg/dL (1.6-2.6); Potassium 4.3 mmol/L (3.5-5.1)
[2017-04-17 17:10] VITALS: BP 107/64
[2017-04-17] MEDS: SENNA 8.6 MG TAB PO SCH (21:34)
[2017-04-17 22:14] VITALS: BP 108/62
[2017-04-18] MEDS: HYDROmorphone HCL 2 MG/ML VL IV PRN ×2 (02:10→09:19)
[2017-04-18 05:39] VITALS: BP 116/61
[2017-04-18 06:30] LABS: Basophils # (auto) 0.1 uL; Hematocrit 24.6 % (36.0-46.0); Lymphocytes # (auto) 2.6 uL; Mean Corpuscular Hgb Conc. 32.5 g/dL (32.0-36.0); Monocytes # (auto) 0.4 uL; Neutrophils # (auto) 7.9 uL; Nucleated Red Blood Cells % 0.1 %
[2017-04-18 06:38] LABS: Basophils % (auto) 0.7 % (0.0-2.0); Eosinophils # (auto) 0.3 uL; Eosinophils % (auto) 2.3 % (0.0-7.0); Lymphocytes % (auto) 22.9 % (10.0-50.0); Mean Corpuscular Hemoglobin 26.2 pg (28.0-32.0); Mean Corpuscular Volume 80.4 fL (80.0-100.0); Mean Platelet Volume 6.2 fL (6.9-10.8); Monocytes % (auto) 3.6 % (0.0-12.0); Neutrophils % (auto) 70.5 % (37.0-80.0); Platelet Count (auto) 471 10^3/uL (140-450); White Blood Cell 11.2 10^3/uL (4.4-10.8)
[2017-04-18] MEDS: BOOST PLUS 8 ounce PO SCH ×3 (06:44→18:00)
[2017-04-18] MEDS: SODIUM CHLORIDE 0.9% 1,000 ML IV SCH (06:45)
[2017-04-18 06:54] LABS: Calcium 8.7 mg/dL (8.5-10.1); Potassium 3.9 mmol/L (3.5-5.1)
[2017-04-18 06:58] LABS: BUN/Creatinine Ratio 10.7; Magnesium 1.8 mg/dL (1.6-2.6)
[2017-04-18 09:00] VITALS: BP 109/64
[2017-04-18] MEDS: CHOLECALCIFEROL (VITD3) 1,000 UNIT TAB PO SCH (09:16)
[2017-04-18] MEDS: ASCORBIC ACID 500 MG TAB PO SCH (09:16)
[2017-04-18] MEDS: PRO-STAT 64 30ML PO SCH (09:16)
[2017-04-18] MEDS: MULTIPLE VITAMINS W/ MINERALS TAB PO SCH (09:16)
[2017-04-18] MEDS: LINEZOLID 600MG/300ML 300 ML IV SCH (09:16)
[2017-04-18] MEDS: cefTRIAXone 1GM/50ML D5W 50 ML IV SCH (09:16)
[2017-04-18] MEDS ORDERED: ONDANSETRON HCL 4 MG/2 ML VIAL IV PRN (09:30)
[2017-04-18] MEDS ORDERED: ACETAMINOPHEN 500 MG TAB PO PRN (09:30)
[2017-04-18] MEDS ORDERED: LINEZOLID 600MG/300ML 300 ML IV SCH (10:00)
[2017-04-18] MEDS ORDERED: METHADONE HCL 10 MG TAB PO SCH (11:30)
[2017-04-18 13:00] VITALS: BP 119/74
[2017-04-18 16:58] VITALS: BP 103/61
== END 2017-04-18 18:15 | disposition home or self-care (01) | DRG 720 ==
LOC: ER 19:54 → OVERFLOW 19:55 → EAST 04-06 09:20 → WEST WING 04-06 15:12
PROVIDERS: ADMIT Nurse Practitioner Family; ATTEND Internal Medicine
PROC: B246ZZ4 Ultrasonography of Right and Left Heart, Transesophageal (ICD-10-PCS; principal; 2017-04-12)
DX: A41.9 Sepsis, unspecified organism (principal); N17.0 Acute kidney failure with tubular necrosis; E43 Unspecified severe protein-calorie malnutrition; L02.31 Cutaneous abscess of buttock; E87.1 Hypo-osmolality and hyponatremia; E87.6 Hypokalemia; F11.23 Opioid dependence with withdrawal; F17.200 Nicotine dependence, unspecified, uncomplicated; F19.20 Other psychoactive substance dependence, uncomplicated; B19.20 Unspecified viral hepatitis C without hepatic coma; E55.9 Vitamin D deficiency, unspecified; B95.62 Methicillin resistant Staphylococcus aureus infection as the cause of diseases classified elsewhere; D64.9 Anemia, unspecified; J90 Pleural effusion, not elsewhere classified; J98.11 Atelectasis; N13.30 Unspecified hydronephrosis; N73.9 Female pelvic inflammatory disease, unspecified; Z53.20 Procedure and treatment not carried out because of patient's decision for unspecified reasons; Z59.0 Homelessness; Z88.1 Allergy status to other antibiotic agents; Z79.899 Other long term (current) drug therapy
CPT/HCPCS: 36415; 71010; 71020; 71250; 72192; 76775; 76830; 76856; 80048; 80053; 80202; 81001; 82306; 82570; 83605; 83735; 84100; 84300; 84702; 85007; 85025; 85027; 85610; 85652; 85730; 86141; 86160; 86592; 86703; 86803; 86850; 86900; 86901; 87040; 87077; 87186; 87205; 87340; 93005; 93306; 93312; 94761; 96365; 96366; 96367; 96375; 99152; 99153; J0696; J1956; J2250; J2405; J2543; J7060